=== PATIENT | male | born 1960 | race Caucasian/White ===

== ENCOUNTER 2016-07-07 16:51 | Observation (INO) ==
[2016-07-07] MEDS ORDERED: Aspirin 81 MG TAB.CHEW PO ONE (16:54)
--- NOTE | 2016-07-07 16:57 | Emergency Department Note ---
Disposition Clinical Impression: Chest pain Qualifiers: Chest pain type: unspecified Qualified Code(s): R07.9 - Chest pain, unspecified Disposition: Admitted As Inpatient Condition: Fair Referrals: NO,PCP [Primary Care Provider] - Forms: ED Satisfaction Letter Time of Disposition: 17:48 Chest Pain HPI - General Chief Complaint: ED Shortness of Breath/Dyspnea Stated Complaint: chest pain and shortness of breath Time Seen by Provider: 07/07/16 16:54 Source: patient, EMS Mode of arrival: EMS Limitations: no limitations Vital Signs Reviewed: Yes Nursing Notes Reviewed: Yes - History of Present Illness HPI Narrative: 56-year-old with a history of recent DE and stent placement in January comes in complaining of some intermittent chest pain for the last 3 days. Had episode of chest pain earlier today that lasted less than a half hour but says it was similar to what he had prior to his DE. Also complains of some back pain. Pt complaint: chest pain Onset (ago): day(s) Duration: intermittent (2) Onset: during rest Pain Location: substernal, left chest Quality: tightness, aching Pain Radiation: back Improves with: nothing Worsens with: nothing Treatments prior to arrival chest pain: aspirin, nitroglycerin - Related Data Previous Rx's Medication Instructions Recorded Aclidinium [place] [[place]za 1 puff IH DAILY #1 aer.pow.ba 11/11/15 Pressair] Albuterol Sulfate [Proair Hfa] 2 puff IH Q4H PRN #1 hfa.aer.ad 11/11/15 Aspirin 81 mg PO QAM #30 tab.chew 11/11/15 Atorvastatin [Lipitor] 40 mg PO DAILY #30 tablet 11/11/15 Budesonide/Formoterol 160/4.5 2 puff IH BIDR #1 inhaler 11/11/15 [Symbicort 160/4.5] Carvedilol [Coreg] 12.5 mg PO BID #30 tablet 11/11/15 Citalopram Hydrobromide 20 mg PO DAILY #30 tablet 11/11/15 [Citalopram HBr] Clopidogrel [Plavix] 75 mg PO QAM #30 tablet 11/11/15 Isosorbide MONOnitrate (24 HR) 30 mg PO DAILY #30 tab.er.24h 11/11/15 [Imdur] Lisinopril [Zestril] 2.5 mg PO QAM #15 tablet 11/11/15 Nitroglycerin 0.4 mg SL Q5MIN PRN #25 tab.subl 11/11/15 predniSONE [PredniSONE] 40 mg PO DAILY #10 tablet 11/11/15 Allergies Allergy/AdvReac Type Severity Reaction Status Date / Time No Known Allergies Allergy Verified 11/10/15 15:23 All systems ED: reviewed and negative except as stated. Constitutional: Denies: fever, chills, weakness, weight change Eyes: Denies: eye pain, eye discharge, vision change ENT ED: Denies: ear pain, throat pain, dental pain, hearing loss, epistaxis, congestion, dysphagia Cardiovascular: Reports: chest pain. Denies: palpitations, dyspnea on exertion , edema, syncope Respiratory: Denies: cough, dyspnea, wheezes, hemoptysis, stridor Gastrointestinal: Denies: abdominal pain, nausea, vomiting, diarrhea, constipation, hematemesis, melena, hematochezia Genitourinary: Denies: urgency, dysuria, frequency, hematuria Musculoskeletal: Denies: back pain, neck pain, arthralgia, myalgia Integumentary: Denies: rash, abrasion, lesions Neurological: Denies: headache, weakness, numbness, paresthesias, confusion, abnormal gait, vertigo Psychiatric: Denies: anxiety, depression, suicidal thoughts, homicidal thoughts , auditory hallucinations, visual hallucinations Endocrine: Denies: fatigue Hematological/Lymphatic: Denies: easy bleeding, easy bruising Allergic/Immunologic: Denies: facial swelling, urticaria Chest Pain PMH - Past Medical History Medical history: Reports: arthritis, COPD, coronary artery disease, GERD, hyperlipidemia, hypertension, myocardial infarction, peripheral artery disease, SVT Surgical history: Reports: angioplasty/stent, appendectomy, other Psychiatric history: Reports: anxiety, depression, other Prior Cardiac Testing/Procedures: Stenting, Cardiac Angiogram - Social History Smoking Status: Current every day smoker Alcohol use: Reports: rarely Drug use: Reports: none Physical Exam - General Limitations: no limitations General appearance: alert, in no apparent distress - Head Head exam: atraumatic, normocephalic, normal inspection - Eye Eye exam: Present: normal appearance, PERRL, EOMI - ENT ENT exam: normal exam, normal oropharynx, mucous membranes moist - Neck Neck exam: Present: normal inspection, full ROM, trachea midline - Chest Chest inspection: Present: normal inspection, symmetric chest wall rise - Respiratory Respiratory exam: Present: normal lung sounds bilaterally - Cardiovascular Cardiovascular exam: Present: regular rate, normal rhythm, normal heart sounds - Abdominal Exam Abdominal exam: Present: soft, Non-Tender. Absent: tenderness, distention, guarding, rebound, rigidity - Extremities Exam Extremities exam: Present: normal inspection, full ROM. Absent: tenderness, pedal edema - Expanded Lower Extremity Exam Neurovascular/Tendon exam: Absent: motor deficit, sensory deficit, tendon deficit Gait: not tested/not observed - Back Exam Back exam: Present: normal inspection, full ROM. Absent: tenderness - Neurological Exam Neurological exam: Present: alert, oriented X3 - Psychiatric Psychiatric exam: Present: normal affect, normal mood - Skin Skin exam: Present: warm, dry, intact, normal color Course - Reevaluation(s) Reevaluation #1: 56-year-old with a history of coronary artery disease is been having chest pain off and on for the last 3 days exertional in nature. An emergency departments negative over admit for rule out. Time: 17:50 - Consultations Consultation #1: Discussed with Dr. Plaza, admit. Time: 17:51 Vital Signs Temperature 98.9 F 07/07/16 16:52 Pulse Rate 94 07/07/16 16:52 Respiratory Rate 18 07/07/16 16:52 Blood Pressure 152/113 07/07/16 16:52 O2 Sat by Pulse Oximetry 94 07/07/16 16:52 Temperature 98.9 F 07/07/16 16:52 Pulse Rate 85 07/07/16 17:49 Respiratory Rate 18 07/07/16 17:49 Blood Pressure 147/108 07/07/16 17:49 O2 Sat by Pulse Oximetry 98 07/07/16 17:49 Oxygen Delivery Oxygen Delivery Nasal Cannula Chest Pain - Lab Data Result diagrams: 07/07/16 17:15 07/07/16 17:15 Lab Results 07/07/16 07/07/16 07/07/16 Range/Units 17:15 17:15 17:15 WBC 11.2 H (4.3-11.1) K/mcL RBC 4.54 (4.19-5.50) M/mcL Hgb 12.8 L (12.9-16.9) g/dL Hct 39.3 (37.5-50.1) % MCV 86.6 (83.0-100.0) fL MCH 28.2 (28.0-33.3) pg MCHC 32.6 (31.6-35.5) g/dL RDW 14.4 (11.5-14.5) % Plt Count 343 (140-400) K/mcL MPV 8.8 L (9.4-12.4) fL Immature Gran % 0.3 (0-4) % Seg Neutrophils % 59.5 % Lymphocytes % 27.6 % Monocytes % 9.7 % Eosinophils % 2.5 % Basophils % 0.4 % Neutrophils # 6.7 (1.6-8.9) K/mcL Lymphocytes # 3.1 (0.6-4.6) K/mcL Monocytes # 1.1 (0.0-1.3) K/mcL Eosinophils # 0.3 (0.0-0.6) K/mcL Basophils # 0.1 (0.0-0.2) K/mcL Immature Plt Fraction 1.6 (1.1-6.1) % PT 12.0 (9.4-12.1) Seconds INR 1.1 APTT 31.5 (26.0-36.0) Seconds Sodium (136-145) mEq/L Potassium (3.5-4.5) mEq/L Chloride (98-109) mEq/L Carbon Dioxide (19-29) mEq/L BUN (8-26) mg/dL Creatinine (0.72-1.25) mg/dL Est GFR ( Amer) (> 60) Est GFR (Non-Af Amer) (> 60) BUN/Creatinine Ratio (6-26) Glucose (70-99) mg/dL Calculated Osmolality (280-300) Calcium (8.6-10.8) mg/dL Troponin I (0-0.03) ng/mL B-Natriuretic Peptide < 10 (0-100) pg/mL 07/07/16 07/07/16 Range/Units 17:15 17:15 WBC (4.3-11.1) K/mcL RBC (4.19-5.50) M/mcL Hgb (12.9-16.9) g/dL Hct (37.5-50.1) % MCV (83.0-100.0) fL MCH (28.0-33.3) pg MCHC (31.6-35.5) g/dL RDW (11.5-14.5) % Plt Count (140-400) K/mcL MPV (9.4-12.4) fL Immature Gran % (0-4) % Seg Neutrophils % % Lymphocytes % % Monocytes % % Eosinophils % % Basophils % % Neutrophils # (1.6-8.9) K/mcL Lymphocytes # (0.6-4.6) K/mcL Monocytes # (0.0-1.3) K/mcL Eosinophils # (0.0-0.6) K/mcL Basophils # (0.0-0.2) K/mcL Immature Plt Fraction (1.1-6.1) % PT (9.4-12.1) Seconds INR APTT (26.0-36.0) Seconds Sodium 136 (136-145) mEq/L Potassium 4.1 (3.5-4.5) mEq/L Chloride 106 (98-109) mEq/L Carbon Dioxide 24 (19-29) mEq/L BUN 11 (8-26) mg/dL Creatinine 0.84 (0.72-1.25) mg/dL Est GFR ( Amer) > 60 (> 60) Est GFR (Non-Af Amer) > 60 (> 60) BUN/Creatinine Ratio 13 (6-26) Glucose 106 H (70-99) mg/dL Calculated Osmolality 282 (280-300) Calcium 8.6 (8.6-10.8) mg/dL Troponin I 0.00 (0-0.03) ng/mL B-Natriuretic Peptide (0-100) pg/mL Heart Score - Score History: Moderately Suspicious EKG: Non Specific repolarisation Disturbance Age: 45-65 Risk Factors: Equal/Greater than 3 risk factor or history of atherosclerotic disease Troponin: Less than normal limit HEART Score Total: 5
[2016-07-07 17:24] LABS: Basophils # 0.1 K/mcL (0.0-0.2); Basophils % 0.4 %; Eosinophils # 0.3 K/mcL (0.0-0.6); Eosinophils % 2.5 %; Hematocrit 39.3 % (37.5-50.1); Hemoglobin 12.8 g/dL (12.9-16.9); Immature Granulocytes % 0.3 % (0-4); Immature Platelets 1.6 % (1.1-6.1); Lymphocytes # 3.1 K/mcL (0.6-4.6); Lymphocytes % 27.6 %; Mean Corpuscular HGB Conc 32.6 g/dL (31.6-35.5); Mean Corpuscular Hemoglobin 28.2 pg (28.0-33.3); Mean Corpuscular Volume 86.6 fL (83.0-100.0); Mean Platelet Volume 8.8 fL (9.4-12.4); Monocytes # 1.1 K/mcL (0.0-1.3); Monocytes % 9.7 %; Neutrophils # 6.7 K/mcL (1.6-8.9); Platelet Count 343 K/mcL (140-400); Red Blood Count 4.54 M/mcL (4.19-5.50); Red Cell Distribution Width 14.4 % (11.5-14.5); Segmented Neutrophils % 59.5 %
[2016-07-07 17:33] LABS: INR 1.1
[2016-07-07 17:36] LABS: Activated Partial Thrombo Time 31.5 Seconds (26.0-36.0); BUN/Creatinine Ratio 13 (6-26); Blood Urea Nitrogen 11 mg/dL (8-26); Calcium 8.6 mg/dL (8.6-10.8); Carbon Dioxide 24 mEq/L (19-29); Chloride 106 mEq/L (98-109); Glucose 106 mg/dL (70-99); Osmolality,Calculated 282 (280-300); Potassium 4.1 mEq/L (3.5-4.5); Sodium 136 mEq/L (136-145); eGFR For African Americans > 60 (> 60); eGFR For Non-African Americans > 60 (> 60)
[2016-07-07] MEDS ORDERED: Nitroglycerin 1 INCH/GM PACKET TP ONE (17:47)
[2016-07-07] MEDS ORDERED: Ondansetron 4 MG/2 ML VIAL IVP PRN (18:41)
[2016-07-07] MEDS ORDERED: Acetaminophen 325 MG TABLET PO PRN (18:41)
[2016-07-07] MEDS ORDERED: Naloxone 0.4 MG/ML INJ IVP PRN (18:41)
[2016-07-07] MEDS ORDERED: Isosorbide MONOnitrate (24 HR) 30 MG TAB.ER.24H PO SCH (18:45)
[2016-07-07] MEDS ORDERED: 0.9 % Sodium Chloride 1,000 ML IVC SCH (18:45)
--- NOTE | 2016-07-07 18:58 | Internal Med History&Physical ---
Date of Encounter: 07/07/16 Time of Encounter: 18:00 Assessment and Plan (1) DVT prophylaxis Current visit: Yes Status: Acute Heparin subcutaneously (2) Chest pain Current visit: Yes Status: Chronic Etiology is undetermined. Sharp pain lasts only several seconds. Most likely musculoskelontal etiology. - Patient has history of CAD S/P stent. We will check 3 sets of troponin to rule out ACS. - EKG reviewed, normal sinus rhythm without ST-T change. - Chest x-ray unremarkable. - Patient had recent catheterization (less than 1 yr). - Educated patient to compliant with medications. - Continue his home medication aspirin, Plavix, beta tiffany, nitrates, and statin Qualifiers: Chest pain type: intercostal pain Qualified Code(s): R07.82 - Intercostal pain (3) CAD (coronary artery disease) Current visit: No Status: Chronic Continue home medications. Qualifiers: Coronary Disease-Associated Artery/Lesion type: [place] artery [place] vs. transplanted heart: [place] heart Associated angina: with stable angina Qualified Code(s): I25.118 - Atherosclerotic heart disease of [place] coronary artery with other forms of angina pectoris (4) COPD (chronic obstructive pulmonary disease) Current visit: No Status: Chronic Continue home medications. Bronchodilators when necessary Qualifiers: COPD type: unspecified COPD Qualified Code(s): J44.9 - Chronic obstructive pulmonary disease, unspecified (5) HTN (hypertension) Current visit: No Status: Chronic Resume home medications. Follow-up blood pressure. Qualifiers: Hypertension type: essential hypertension Qualified Code(s): I10 - Essential (primary) hypertension (6) Tobacco abuse Current visit: No Status: Chronic Smoking cessation education. Nicotine patch placed Internal Medicine - H&P: HPI Chief complaint: Chest pain Admitted From: Home Plans for Post Hospital Care: Home History of present illness: Mr. Akins is a 56 year old male presents to ER for chest pain. He has a past medical history of CAD S/P stent, COPD, and hypertension. Patient said that he do not feel good since that this morning. He feels cold, nausea, and vomited once. He started to have chest pain suddenly this afternoon when he sat in couch. Pain was located on left sided chest, sharp, 10 out of 10, no radiation, lasted about several second and resolved by itself. Patient denies diaphoresis. He has frequent chest pressure but stated this time the pain is different. He has a mild nausea, mild shortness of breath but it is about his baseline. He has only one episode of chest pain this afternoon. No further chest pain when he was ER. He complains of mild cough with small amount of sputum. Denies fever, runny nose, sore throat, abdominal pain, or diarrhea. Patient had cardiac catheterization in July 2015, which shows both stents patent. He is not compliant with his medication, and said he did not take medications for about 1 week because he just did not want to take them. I discussed the CODE STATUS with patient. He is full code Past Med Surg Social Fam HX - Past Medical History Medical history: arthritis, COPD, coronary artery disease, GERD, hyperlipidemia , hypertension, myocardial infarction, peripheral artery disease, SVT Psychiatric history: anxiety, depression, other - Past Surgical History Surgical History: angioplasty/stent, appendectomy, other - Social History Smoking Status: Current every day smoker Smokeless Tobacco Status: No Alcohol use: rarely Drug use: none - Family History Father Adopted: No Living Status: Mother Living Status: Internal Medicine - H&P: Meds Albuterol Sulfate [Proair Hfa] 2 puff IH Q4H PRN #1 hfa.aer.ad 11/11/15 [Rx] Aspirin 81 mg PO QAM #30 tab.chew 11/11/15 [Rx] Budesonide/Formoterol 160/4.5 [Symbicort 160/4.5] 2 puff IH BIDR #1 inhaler 04/23 [Rx] Carvedilol [Coreg] 12.5 mg PO BID #30 tablet 11/11/15 [Rx] Clopidogrel [Plavix] 75 mg PO QAM #30 tablet 11/11/15 [Rx] Isosorbide MONOnitrate (24 HR) [Imdur] 30 mg PO DAILY #30 tab.er.24h 11/11/15 [ Rx] Lisinopril [Zestril] 5 mg PO QAM 07/07/16 [History] Lovastatin 40 mg PO HS 07/07/16 [History] Allergies No Known Allergies Allergy (Verified 11/10/15 15:23) All Systems PM: A 10-system review of systems was performed and is negative for pertinent findings except as documented above in the HPI. - Constitutional Vitals: Temp Pulse Resp BP Pulse Ox 98.9 F 86 18 120/97 97 07/07/16 16:52 07/07/16 18:00 07/07/16 18:00 07/07/16 18:00 07/07/16 18:00 General appearance: Present: A&O X 3, no acute distress, answers questions appropriately - Head Head exam: Present: atraumatic, normocephalic - Eye Eye exam: Present: PERRL, conjuntiva pink, sclera anicteric Pupils: Present: PERRL - Neck Neck exam general surgery: Present: supple, trachea midline. Absent: lymphadenopathy - Respiratory Respiratory exam: Present: CTAB. Absent: accessory muscle use, chest wall tenderness, rales, rhonchi, wheezes - Cardiovascular Cardiovascular exam: Present: RRR, +S1, +S2. Absent: diastolic murmur, gallop, rubs, systolic murmur - GI/Abdominal GI/Abdominal exam: Present: normal bowel sounds, soft, no peritoneal signs. Absent: distended, tenderness - Extremities Exam Extremities exam: Present: warm, radial pulses palpable and symetrical. Absent : calf tenderness, cyanotic, pedal edema - Neurological Exam Neurological exam: Present: CN II-XII intact, oriented X3, no focal deficits. Absent: pronater drift, facial droop, speech deficit - Skin Skin exam: Present: dry, intact Internal Med - H&P Results - Labs CBC & Chem 7: 07/07/16 17:15 07/07/16 17:15 - EKG Data -: EKG Interpreted by Myself EKG shows normal: sinus rhythm Rate: normal
[2016-07-07] MEDS ORDERED: Ipratropium/Albuterol Neb 3 ML IH PRN (19:08)
[2016-07-07] MEDS ORDERED: Nicotine 21 MG PATCH.TD24 TD SCH (19:15)
[2016-07-07] MEDS: Budesonide/Formoterol 160/4.5 MDI IH SCH (20:19)
[2016-07-07 21:01] LABS: Albumin 3.1 g/dL (3.5-5.0); Albumin/Globulin Ratio 0.9 (1.1-2.2); Bilirubin,Direct 0.2 mg/dL (0.0-0.5); Bilirubin,Total 0.2 mg/dL (0.2-1.2); Globulin 3.5 g/dL (2.4-3.5); Total Protein 6.6 g/dL (6.0-8.3)
[2016-07-08 01:08] LABS: Basophils # 0.1 K/mcL (0.0-0.2); Basophils % 0.4 %; Eosinophils # 0.2 K/mcL (0.0-0.6); Eosinophils % 1.9 %; Hematocrit 38.6 % (37.5-50.1); Hemoglobin 12.8 g/dL (12.9-16.9); Immature Granulocytes % 0.3 % (0-4); Lymphocytes # 3.6 K/mcL (0.6-4.6); Lymphocytes % 31.1 %; Mean Corpuscular HGB Conc 33.2 g/dL (31.6-35.5); Mean Corpuscular Hemoglobin 28.5 pg (28.0-33.3); Monocytes % 8.6 %; Neutrophils # 6.6 K/mcL (1.6-8.9); Platelet Count 297 K/mcL (140-400); Red Blood Count 4.49 M/mcL (4.19-5.50); Red Cell Distribution Width 14.6 % (11.5-14.5); Segmented Neutrophils % 57.7 %
[2016-07-08 01:23] LABS: BUN/Creatinine Ratio 14 (6-26); Blood Urea Nitrogen 11 mg/dL (8-26); Calcium 8.9 mg/dL (8.6-10.8); Carbon Dioxide 27 mEq/L (19-29); Chloride 106 mEq/L (98-109); Glucose 98 mg/dL (70-99); Magnesium 1.9 mg/dL (1.6-2.6); Osmolality,Calculated 285 (280-300); Potassium 4.3 mEq/L (3.5-4.5); Sodium 138 mEq/L (136-145); eGFR For African Americans > 60 (> 60); eGFR For Non-African Americans > 60 (> 60)
[2016-07-08] MEDS ORDERED: 0.9 % Sodium Chloride 1,000 ML IVC ONE (01:40)
[2016-07-08] MEDS ORDERED: *HR* Heparin 5,000 UNIT/ML VIAL SQ SCH (06:00)
[2016-07-08] MEDS: Budesonide/Formoterol 160/4.5 MDI IH SCH (07:51)
[2016-07-08] MEDS ORDERED: Aspirin 81 MG TAB.CHEW PO SCH (09:00)
[2016-07-08 10:54] VITALS: BP 114/64
--- NOTE | 2016-07-08 11:01 | Discharge Summary ---
Date of Encounter: 07/08/16 Time of Encounter: 11:01 - Discharge Diagnosis (1) Chest pain Priority: Primary Status: Acute Qualifiers: Chest pain type: intercostal pain Qualified Code(s): R07.82 - Intercostal pain (2) History of noncompliance with medical treatment Priority: Primary Status: Acute (3) Anxiety Priority: Secondary Status: Chronic (4) CAD (coronary artery disease) Priority: Secondary Status: Chronic Qualifiers: Coronary Disease-Associated Artery/Lesion type: [place] artery [place] vs. transplanted heart: [place] heart Associated angina: with stable angina Qualified Code(s): I25.118 - Atherosclerotic heart disease of [place] coronary artery with other forms of angina pectoris (5) COPD (chronic obstructive pulmonary disease) Priority: Secondary Status: Chronic Qualifiers: COPD type: unspecified COPD Qualified Code(s): J44.9 - Chronic obstructive pulmonary disease, unspecified (6) HTN (hypertension) Priority: Secondary Status: Chronic Qualifiers: Hypertension type: essential hypertension Qualified Code(s): I10 - Essential (primary) hypertension (7) Hyperlipidemia Priority: Secondary Status: Chronic Qualifiers: Hyperlipidemia type: mixed hyperlipidemia Qualified Code(s): E78.2 - Mixed hyperlipidemia (8) Nicotine dependence with nicotine-induced disorder Priority: Secondary Status: Chronic Qualifiers: Nicotine product type: cigarettes Qualified Code(s): F17.219 - Nicotine dependence, cigarettes, with unspecified nicotine-induced disorders - Discharge Medications Home Medications: Albuterol Sulfate [Proair Hfa] 2 puff IH Q4H PRN #1 hfa.aer.ad 11/11/15 [Rx] Aspirin 81 mg PO QAM #30 tab.chew 11/11/15 [Rx] Budesonide/Formoterol 160/4.5 [Symbicort 160/4.5] 2 puff IH BIDR #1 inhaler 04/23 [Rx] Carvedilol [Coreg] 12.5 mg PO BID #30 tablet 11/11/15 [Rx] Clopidogrel [Plavix] 75 mg PO QAM #30 tablet 11/11/15 [Rx] Isosorbide MONOnitrate (24 HR) [Imdur] 30 mg PO DAILY #30 tab.er.24h 11/11/15 [ Rx] Lisinopril [Zestril] 5 mg PO QAM 07/07/16 [History] Lovastatin 40 mg PO HS 07/07/16 [History] Acetaminophen [Tylenol] 650 mg PO Q6HR PRN #0 tablet 07/08/16 [Rx] Allergies/Adverse Reactions: Allergies No Known Allergies Allergy (Verified 11/10/15 15:23) Procedures/tests Complete & Pending: Procedures Performed prior 72 hours Category Date Time Status ECG 12 lead ECG [ECG] Routine Y 07/07/16 20:24 Completed EV echocardiogram Routine Y 07/08/16 04:05 Completed Date of admission: 07/07/16 18:26 Primary care physician: PCP NO Discharging clinician: Hector Monson Anticipated date of discharge: 07/08/16 - Patient Status Disposition: Home, Self-Care Condition: Fair Functional capacity at discharge: independent ambulation Overall status at discharge: patient is progressing back to baseline - Discharge Instructions Instructions: Chest Pain (DC) Follow Up With: [facility] [Provider Group] (The Office will call you to make a follow up appt.) Ye Carter MD [Non-Partnered Physician] - 07/16/16 1:00 pm () Additional Instructions: FOLLOW UP WITH PCP STOP SMOKING FOLLOW UP WITH CARDIOLOGY - Diet and Activity Activity: resume usual activities as tolerated Diet: low fat, low cholesterol, low salt diet Interval History: See below Hospital course: Mr. Akins is a 56 year old male with PMH of CAD s/p stents, C ~a year ago with patent stents, Smoker, Depression/Anxiety Patient with known non-compliance to medications presented with complains of atypical chest pain Work up for ACS was negative-Troponin negative X4, EKG NSR without ST segment changes, ECHO was essentially unremarkable with no wall motion abnormalities and with normal EF Seen at bedside this morning, asymptomatic Patient is clinically stable for discharge Counselled on tobacco cessation and medication compliance, confirmed that patient has medication bottles with him with pills in them Follow up with PCP Time spent discussing smoking cessation with patient: 3 to 10 minutes (4 minutes spent on tobacco cessation) - Time Spent with Patient Total time spent providing and/or coordinating discharge services: Less than 30 minutes - Constitutional Vitals: Temp Pulse Resp BP Pulse Ox 97.4 F L 73 20 114/64 95 07/08/16 10:52 07/08/16 10:52 07/08/16 10:52 07/08/16 10:52 07/08/16 10:52 General appearance: Present: A&O X 3, pleasant, no acute distress, answers questions appropriately - Head Head exam: Present: atraumatic, normocephalic - Eye Eye exam: Present: PERRL, conjuntiva pink, sclera anicteric Pupils: Present: PERRL - Neck Neck exam general surgery: Present: supple, trachea midline. Absent: lymphadenopathy - Respiratory Respiratory exam: Present: CTAB. Absent: accessory muscle use, rales, rhonchi, wheezes - Cardiovascular Cardiovascular exam: Present: RRR, +S1, +S2. Absent: diastolic murmur, gallop, rubs, systolic murmur - GI/Abdominal GI/Abdominal exam: Present: normal bowel sounds, soft, no peritoneal signs. Absent: distended, tenderness - Extremities Exam Extremities exam: Present: warm, radial pulses palpable and symetrical. Absent : calf tenderness, cyanotic, pedal edema - Neurological Exam Neurological exam: Present: alert, CN II-XII intact, oriented X3, no focal deficits. Absent: pronater drift, facial droop, speech deficit - Skin Skin exam: Present: dry, intact
--- NOTE | 2016-07-08 13:00 | Electrocardiograph Report ---
[address] [address] Test Date: 2016-07-07 Pat Name: Ld Akins Department: 105 Room: 3B23 Gender: M Consulting Engineer: MSC : 1960 Requested By: Ravindra Kenney Order Number: [id number] Reading MD: Randy Gomez MD Measurements Intervals [place] Rate: 91 P: 17 ME: 150 QRS: 12 QRSD: 98 T: 53 QT: 350 QTc: 399 Interpretive Statements SINUS RHYTHM Electronically Signed On 07-08-2016 12:59:06 EDT by Randy Gomez MD
--- NOTE | 2016-07-08 15:51 | Electrocardiograph Report ---
[address] [address] Test Date: 2016-07-07 Pat Name: Ld Akins Department: 113 Room: 3B23 Gender: M Business Technology Teacher: RACHEL : 1960 Requested By: Cassidy Walker Order Number: [id number] Reading MD: Randy Gomez MD Measurements Intervals [place] Rate: 96 P: 22 ND: 143 QRS: 33 QRSD: 91 T: 46 QT: 353 QTc: 407 Interpretive Statements SINUS RHYTHM Electronically Signed On 07-08-2016 15:50:03 EDT by Randy Gomez MD
== END 2016-07-08 13:11 | disposition home or self-care (01) ==
LOC: 3BNU 16:51 → EMEROO 16:51 → 3BNU 19:00
PROVIDERS: ADMIT Internal Medicine; ATTEND Nurse Practitioner Family

== ENCOUNTER 2019-02-19 16:06 | Inpatient (IN) ==
[2019-02-19] MEDS ORDERED: Ketorolac 30 MG/ML VIAL IVP ONE (16:26)
[2019-02-19] MEDS ORDERED: Isovue-370 500 ML BOTTLE IVP ONE (16:48)
[2019-02-19] MEDS ORDERED: 0.9 % Sodium Chloride 2,000 ML ONE (16:50)
[2019-02-19] MEDS ORDERED: Esmolol 2.5 GM/250 ML MLS IVC ONE (16:52)
[2019-02-19 16:59] LABS: Bilirubin,Urine Small (Negative); Blood,Urine Negative (Negative); Clarity,Urine Clear (Clear); Color,Urine Yellow (Yellow); Glucose,Urine (UA) Normal (Normal); Ketones,Urine Trace mg/dL (Negative); Leukocyte Esterase,Urine Small (Negative); Nitrite,Urine Negative (Negative); Protein,Urine 30 mg/dL (Neg-Trace); Specific Gravity,Urine 1.026 (1.010-1.025); Urobilinogen,Urine Normal (Normal)
[2019-02-19 17:01] LABS: Bacteria,Urine None Seen per hpf (None-Few); Hyaline Casts,Urine Few per lpf (None-Few); Squamous Epithelial Cell,Urine Many per lpf (None-Few)
[2019-02-19 17:06] LABS: Basophils % 0.3 %; Eosinophils # 0.2 K/mcL (0.0-0.6); Eosinophils % 1.3 %; Hematocrit 42.5 % (37.5-50.1); Immature Granulocytes % 0.3 % (0-4); Lymphocytes # 3.1 K/mcL (0.6-4.6); Lymphocytes % 25.9 %; Mean Corpuscular HGB Conc 35.3 g/dL (31.6-35.5); Mean Corpuscular Hemoglobin 29.1 pg (28.0-33.3); Mean Corpuscular Volume 82.5 fL (83.0-100.0); Mean Platelet Volume 9.4 fL (9.4-12.4); Monocytes # 0.8 K/mcL (0.0-1.3); Neutrophils # 7.7 K/mcL (1.6-8.9); Platelet Count 273 K/mcL (140-400); Red Blood Count 5.15 M/mcL (4.19-5.50); Red Cell Distribution Width 15.2 % (11.5-14.5); Segmented Neutrophils % 65.2 %; White Blood Count 11.9 K/mcL (4.3-11.1)
[2019-02-19] MEDS: Esmolol 2.5 GM/250 ML MLS IVC SCH ×2 (17:08→22:34)
[2019-02-19 17:24] LABS: Alanine Aminotransferase 10 Units/L (7-52); Albumin 4.2 g/dL (3.5-5.7); Albumin/Globulin Ratio 1.2 (1.1-2.2); Alkaline Phosphatase 109 Units/L (34-104); Aspartate Amino Transferase 13 Units/L (13-39); BUN/Creatinine Ratio 13 (6-26); Bilirubin,Direct 0.1 mg/dL (0.0-0.2); Bilirubin,Indirect 0.3 mg/dL (0.0-1.0); Bilirubin,Total 0.4 mg/dL (0.3-1.0); Blood Urea Nitrogen 11 mg/dL (8-23); Calcium 9.4 mg/dL (8.6-10.3); Carbon Dioxide 22 mEq/L (23-29); Chloride 105 mEq/L (98-107); Globulin 3.4 g/dL (2.4-3.5); Glucose 120 mg/dL (70-105); Lipase 19 Units/L (11-82); Osmolality,Calculated 283 (280-300); Potassium 4.1 mEq/L (3.5-5.1); Sodium 136 mEq/L (136-145); Total Protein 7.6 g/dL (6.4-8.9); Troponin I < 0.03 ng/mL (< 0.04); eGFR For African Americans > 60 (> 60); eGFR For Non-African Americans > 60 (> 60)
[2019-02-19] MEDS ORDERED: Naloxone 0.4 MG/ML INJ IVP PRN (20:15)
[2019-02-19] MEDS: Acetaminophen 325 MG TABLET PO PRN (20:45)
[2019-02-19] MEDS ORDERED: Ipratropium/Albuterol Neb 3 ML IH PRN (22:50)
[2019-02-19] MEDS ORDERED: Nicotine 14 MG PATCH.TD24 TD PRN (23:09)
[2019-02-20] MEDS: Esmolol 2.5 GM/250 ML MLS IVC SCH ×4 (04:03→21:40)
[2019-02-20] MEDS: Acetaminophen 325 MG TABLET PO PRN ×3 (05:47→20:51)
[2019-02-20 08:26] LABS: Basophils % 0.3 %; Eosinophils # 0.2 K/mcL (0.0-0.6); Eosinophils % 1.4 %; Hematocrit 41.8 % (37.5-50.1); Hemoglobin 14.2 g/dL (12.9-16.9); Immature Granulocytes % 0.4 % (0-4); Lymphocytes # 2.6 K/mcL (0.6-4.6); Lymphocytes % 23.3 %; Mean Corpuscular Hemoglobin 28.6 pg (28.0-33.3); Mean Corpuscular Volume 84.1 fL (83.0-100.0); Monocytes # 0.9 K/mcL (0.0-1.3); Monocytes % 8.2 %; Neutrophils # 7.4 K/mcL (1.6-8.9); Platelet Count 259 K/mcL (140-400); Red Blood Count 4.97 M/mcL (4.19-5.50); Red Cell Distribution Width 15.2 % (11.5-14.5); Segmented Neutrophils % 66.4 %; White Blood Count 11.1 K/mcL (4.3-11.1)
[2019-02-20 08:29] LABS: INR 1.1; Prothrombin Time 12.5 Seconds (9.4-12.1)
[2019-02-20 08:44] LABS: BUN/Creatinine Ratio 14 (6-26); Blood Urea Nitrogen 10 mg/dL (8-23); Carbon Dioxide 22 mEq/L (23-29); Chloride 106 mEq/L (98-107); Glucose 102 mg/dL (70-105); Osmolality,Calculated 279 (280-300); Potassium 4.6 mEq/L (3.5-5.1); Sodium 135 mEq/L (136-145); eGFR For African Americans > 60 (> 60); eGFR For Non-African Americans > 60 (> 60)
[2019-02-20] MEDS ORDERED: Aspirin Enteric Coated 81 MG Tablet PO SCH (09:00)
[2019-02-21] MEDS ORDERED: Regadenoson 0.4 MG/5 ML SYRINGE IVP ONE (06:28)
[2019-02-21] MEDS ORDERED: Aspirin Enteric Coated 81 MG Tablet PO SCH (09:00)
[2019-02-21 13:40] LABS: Basophils % 0.3 %; Eosinophils # 0.2 K/mcL (0.0-0.6); Eosinophils % 1.5 %; Hematocrit 43.9 % (37.5-50.1); Hemoglobin 14.8 g/dL (12.9-16.9); Immature Granulocytes % 0.4 % (0-4); Lymphocytes # 3.1 K/mcL (0.6-4.6); Lymphocytes % 25.1 %; Mean Corpuscular HGB Conc 33.7 g/dL (31.6-35.5); Mean Corpuscular Hemoglobin 28.5 pg (28.0-33.3); Mean Corpuscular Volume 84.6 fL (83.0-100.0); Mean Platelet Volume 8.9 fL (9.4-12.4); Monocytes # 0.7 K/mcL (0.0-1.3); Neutrophils # 8.2 K/mcL (1.6-8.9); Platelet Count 241 K/mcL (140-400); Red Blood Count 5.19 M/mcL (4.19-5.50); Red Cell Distribution Width 15.2 % (11.5-14.5); Segmented Neutrophils % 66.7 %; White Blood Count 12.3 K/mcL (4.3-11.1)
[2019-02-21 14:05] LABS: Alanine Aminotransferase 10 Units/L (7-52); Albumin/Globulin Ratio 1.2 (1.1-2.2); Alkaline Phosphatase 104 Units/L (34-104); Aspartate Amino Transferase 11 Units/L (13-39); BUN/Creatinine Ratio 18 (6-26); Bilirubin,Total 0.5 mg/dL (0.3-1.0); Blood Urea Nitrogen 14 mg/dL (8-23); Calcium 9.3 mg/dL (8.6-10.3); Carbon Dioxide 21 mEq/L (23-29); Chloride 107 mEq/L (98-107); Globulin 3.3 g/dL (2.4-3.5); Glucose 109 mg/dL (70-105); Magnesium 1.9 mg/dL (1.6-2.6); Osmolality,Calculated 283 (280-300); Sodium 136 mEq/L (136-145); Total Protein 7.3 g/dL (6.4-8.9); eGFR For African Americans > 60 (> 60); eGFR For Non-African Americans > 60 (> 60)
[2019-02-21] MEDS: Acetaminophen 325 MG TABLET PO PRN (18:24)
[2019-02-21 18:29] VITALS: BP 113/51
[2019-02-22] MEDS ORDERED: Vancomycin 1,000 MG, Sodium Chloride IRRigation 1,000 ML IR ONE (06:00)
== END 2019-02-21 19:15 | disposition short-term general hospital (02) | DRG 197 ==
LOC: EMEROOARM 16:06 → ICNU 16:06
PROVIDERS: ADMIT Family Medicine; ATTEND Family Medicine

== ENCOUNTER 2020-04-08 00:32 | Inpatient (IN) ==
[2020-04-08] MEDS ORDERED: Aspirin 81 MG TAB.CHEW PO ONE (00:42)
[2020-04-08] MEDS ORDERED: Morphine Sulfate 2 MG/ML SYRINGE IVP ONE ×2 (01:17→03:12)
[2020-04-08 01:34] LABS: Basophils # 0.1 K/mcL (0.0-0.2); Basophils % 0.5 %; Eosinophils # 0.3 K/mcL (0.0-0.6); Eosinophils % 3.1 %; Hematocrit 39.4 % (37.5-50.1); Hemoglobin 13.3 g/dL (12.9-16.9); Immature Granulocytes % 0.3 % (0-4); Lymphocytes # 3.3 K/mcL (0.6-4.6); Lymphocytes % 29.7 %; Mean Corpuscular HGB Conc 33.8 g/dL (31.6-35.5); Mean Corpuscular Hemoglobin 28.4 pg (28.0-33.3); Mean Corpuscular Volume 84.2 fL (83.0-100.0); Mean Platelet Volume 8.8 fL (9.4-12.4); Neutrophils # 6.4 K/mcL (1.6-8.9); Platelet Count 241 K/mcL (140-400); Red Blood Count 4.68 M/mcL (4.19-5.50); Red Cell Distribution Width 14.5 % (11.5-14.5); Segmented Neutrophils % 57.4 %; White Blood Count 11.1 K/mcL (4.3-11.1)
[2020-04-08 01:44] LABS: INR 1.1; Prothrombin Time 12.4 Seconds (9.4-12.1)
[2020-04-08 01:47] LABS: Activated Partial Thrombo Time 29.7 Seconds (26.0-36.0)
[2020-04-08 01:52] LABS: BUN/Creatinine Ratio 15 (6-26); Blood Urea Nitrogen 12 mg/dL (8-23); Calcium 8.7 mg/dL (8.6-10.3); Carbon Dioxide 24 mEq/L (23-29); Chloride 103 mEq/L (98-107); Glucose 123 mg/dL (70-105); Osmolality,Calculated 283 (280-300); Potassium 3.6 mEq/L (3.5-5.1); Sodium 136 mEq/L (136-145); eGFR For African Americans > 60 (> 60); eGFR For Non-African Americans > 60 (> 60)
[2020-04-08 01:55] LABS: Troponin I 2.08 ng/mL (< 0.04)
[2020-04-08 01:56] LABS: Platelet Estimate Normal (Normal)
[2020-04-08] MEDS ORDERED: *HR* Heparin 5,000 UNIT/ML VIAL IVP PRN ×2 (01:57)
[2020-04-08] MEDS ORDERED: *HR* Heparin 5,000 UNIT/ML VIAL IVP ONE (01:57)
[2020-04-08] MEDS ORDERED: Heparin 25,000UNIT/250ML 1/2NS 25,000 UNIT/250 ML IV.SOLN IVC SCH (02:00)
[2020-04-08] MEDS ORDERED: *HR* Labetalol 20 MG/4 ML SYRINGE IVP ONE (02:06)
[2020-04-08 02:12] LABS: Heparin anti-factor XA UFH < 0.04 IU/mL (0.30-0.70)
[2020-04-08] MEDS ORDERED: Naloxone 0.4 MG/ML INJ IVP PRN (03:31)
[2020-04-08] MEDS ORDERED: Ondansetron 4 MG/2 ML VIAL IVP PRN (03:31)
[2020-04-08] MEDS ORDERED: 0.9 % Sodium Chloride 1,000 ML IVC SCH (03:45)
[2020-04-08] MEDS ORDERED: Perflutren Lipid Microsphere 1.3 ML in 0.9 % Sodium Chloride 8.7 ML IVP PRN (03:48)
[2020-04-08] MEDS: Levalbuterol Neb 0.63 MG/3 ML IH SCH ×4 (04:28→22:16)
[2020-04-08 06:37] LABS: Basophils % 0.3 %; Eosinophils # 0.4 K/mcL (0.0-0.6); Eosinophils % 3.5 %; Hematocrit 39.5 % (37.5-50.1); Hemoglobin 13.3 g/dL (12.9-16.9); Immature Granulocytes % 0.4 % (0-4); Lymphocytes # 3.5 K/mcL (0.6-4.6); Lymphocytes % 32.7 %; Mean Corpuscular HGB Conc 33.7 g/dL (31.6-35.5); Mean Corpuscular Hemoglobin 28.5 pg (28.0-33.3); Mean Corpuscular Volume 84.6 fL (83.0-100.0); Mean Platelet Volume 8.8 fL (9.4-12.4); Monocytes # 0.8 K/mcL (0.0-1.3); Monocytes % 7.6 %; Platelet Count 224 K/mcL (140-400); Red Blood Count 4.67 M/mcL (4.19-5.50); Red Cell Distribution Width 14.6 % (11.5-14.5); Segmented Neutrophils % 55.5 %; White Blood Count 10.7 K/mcL (4.3-11.1)
[2020-04-08 06:41] LABS: Neutrophils # 5.9 K/mcL (1.6-8.9)
[2020-04-08 06:55] LABS: Platelet Estimate Normal (Normal); Reactive Lymphocytes Present (Not Present)
[2020-04-08] MEDS: Aspirin 81 MG TAB.CHEW PO SCH (08:31)
[2020-04-08] MEDS ORDERED: *HR* FentaNYL (PF) 100 MCG/2 ML VIAL ONE (11:24)
[2020-04-08] MEDS ORDERED: *HR* Heparin 10,000 UNIT/10 ML VIAL ONE (11:24)
[2020-04-08] MEDS ORDERED: ISOVUE-370 200 ML INFUS..BTL ONE ×3 (11:24→12:23)
[2020-04-08] MEDS ORDERED: Heparin 1,000 UNITS/500 mL 500 ML ONE (11:24)
[2020-04-08] MEDS ORDERED: 0.9 % Sodium Chloride 2,000 ML ONE (11:24)
[2020-04-08] MEDS ORDERED: *HR* Midazolam HCl 2 MG/2 ML VIAL ONE (11:24)
[2020-04-08] MEDS ORDERED: Nitroglycerin 1,000 MCG/10 ML VIAL IV ONE (11:24)
[2020-04-08] MEDS ORDERED: Tirofiban 12.5 MG/250ML 12.5 MG/250 ML BAG ONE (12:07)
[2020-04-08] MEDS ORDERED: *HR* Ticagrelor 90 MG TABLET ONE (12:18)
[2020-04-08] MEDS ORDERED: Tirofiban 12.5 MG/250ML 12.5 MG/250 ML BAG IVC SCH (12:30)
[2020-04-08] MEDS: *HR* Ticagrelor 90 MG TABLET PO SCH (20:45)
[2020-04-09] MEDS: Levalbuterol Neb 0.63 MG/3 ML IH SCH ×2 (03:38→10:06)
[2020-04-09 04:44] LABS: Basophils % 0.2 %; Eosinophils # 0.2 K/mcL (0.0-0.6); Hematocrit 40.3 % (37.5-50.1); Immature Granulocytes % 0.4 % (0-4); Lymphocytes # 2.6 K/mcL (0.6-4.6); Lymphocytes % 20.9 %; Mean Corpuscular HGB Conc 32.3 g/dL (31.6-35.5); Mean Corpuscular Hemoglobin 28.3 pg (28.0-33.3); Mean Corpuscular Volume 87.6 fL (83.0-100.0); Mean Platelet Volume 9.2 fL (9.4-12.4); Monocytes % 8.4 %; Neutrophils # 8.4 K/mcL (1.6-8.9); Platelet Count 240 K/mcL (140-400); Segmented Neutrophils % 68.1 %; White Blood Count 12.3 K/mcL (4.3-11.1)
[2020-04-09 05:04] LABS: BUN/Creatinine Ratio 18 (6-26); Blood Urea Nitrogen 13 mg/dL (8-23); Calcium 9.1 mg/dL (8.6-10.3); Carbon Dioxide 21 mEq/L (23-29); Chloride 108 mEq/L (98-107); Glucose 106 mg/dL (70-105); Osmolality,Calculated 283 (280-300); Potassium 4.2 mEq/L (3.5-5.1); Sodium 136 mEq/L (136-145); eGFR For African Americans > 60 (> 60); eGFR For Non-African Americans > 60 (> 60)
[2020-04-09 08:29] VITALS: BP 141/88
[2020-04-09] MEDS ORDERED: Metoprolol XL (24 HR) Succ 25 MG TAB.ER.24H PO SCH (09:00)
[2020-04-09] MEDS: Aspirin 81 MG TAB.CHEW PO SCH (09:07)
[2020-04-09] MEDS: *HR* Ticagrelor 90 MG TABLET PO SCH (09:07)
== END 2020-04-09 14:43 | disposition home or self-care (01) | DRG 175 ==
LOC: CDU 00:32 → EMEROOARM 00:32 → SUATTDRO 03:14 → CDU 03:38 → 2ANU 16:47
PROVIDERS: ADMIT Internal Medicine; ATTEND Family Medicine